=== PATIENT | female | born 1990 | race Caucasian/White ===

== ENCOUNTER 2016-11-18 20:20 | Emergency (ER) | payer OTHER ==
[~2016-11-18] VITALS: Ht 182.9 cm; Wt 104.3 kg
== END 2016-11-18 23:24 | disposition home or self-care (01) ==
LOC: ED 20:20
DX: J20.9 Acute bronchitis, unspecified (principal); F17.200 Nicotine dependence, unspecified, uncomplicated
CPT/HCPCS: 71020; 94640; 99283

== ENCOUNTER 2017-01-03 06:04 | Emergency (ER) | payer OTHER ==
[~2017-01-03] VITALS: Ht 182.9 cm; Wt 104.3 kg
[2017-01-03] MEDS ORDERED: ZOFRAN ODT4 MG PO (07:15)
== END 2017-01-03 07:38 | disposition home or self-care (01) ==
LOC: ED 06:04
DX: R11.2 Nausea with vomiting, unspecified (principal); F17.200 Nicotine dependence, unspecified, uncomplicated
CPT/HCPCS: 80053; 81001; 84703; 85025; 96361; 96374; 99283; J2405; J7030

== ENCOUNTER 2018-06-06 18:46 | Inpatient (IN) | payer OTHER ==
[~2018-06-06 18:46] MED LIST: ZOFRAN ODT4 MG PO
[2018-06-07] MEDS ORDERED: PRENATAL VITAM1 EACH PO (02:35)
--- NOTE | 2018-06-07 13:06 | PR ---
[facility] [address] [place] [address] Signed PP Progress Notes Datetime Report Generated by CPN: 06/07/2018 13:06 SUBJECTIVE: [id number] Pain: Within normal limits Nausea/Vomiting: Denies Vital Signs: [id number] Vital Signs: Reviewed; Within Normal Limits Notable Details: PP Hgb/Hct = 10.2/30.3 EXAM: [id number] Abdomen/Uterus: Normal Lochia: Normal Extremities: Normal IMPRESSION/PLAN/PROCEDURES: [id number] Impression: Normal progression Plan: Continue present management Procedures: None Progress Notes: Doing well, without complaint. Signing Physician: Kristel Alexis MD Copies: ~ *Electronically Signed* 06/07/18 1306 KRISTEL ALEXIS MD PATIENT NAME: RUTHIE DARDEN PROGRESS NOTE DATE OF : 89 PHYSICIAN: KRISTEL ALEXIS MD RPT #: [id number] REPORT IS CONFIDENTIAL AND NOT TO BE RELEASED WITHOUT AUTHORIZATION
--- NOTE | 2018-06-08 08:26 | PR ---
[facility] [address] [facility] [place] [address] Signed PP Progress Notes Datetime Report Generated by CPN: 06/08/2018 08:25 SUBJECTIVE: [id number] Pain: Within normal limits Nausea/Vomiting: Denies Vital Signs: [id number] Vital Signs: Reviewed; Within Normal Limits Notable Details: PP Hgb/Hct = 10.2/30.3 EXAM: [id number] Abdomen/Uterus: Normal Lochia: Normal Extremities: Normal IMPRESSION/PLAN/PROCEDURES: [id number] Impression: Normal progression Plan: Discharge Procedures: None Progress Notes: Doing well, without complaint. Ready to go home. Signing Physician: Kristel Alexis MD Copies: ~ *Electronically Signed* 06/08/18 0825 KRISTEL ALEXIS MD PATIENT NAME: RUTHIE DARDEN PROGRESS NOTE DATE OF : 89 PHYSICIAN: KRISTEL ALEXIS MD RPT #: [id number] REPORT IS CONFIDENTIAL AND NOT TO BE RELEASED WITHOUT AUTHORIZATION
== END 2018-06-08 12:35 | disposition home or self-care (01) | DRG 807 ==
LOC: FBCO 18:46 → FBC 20:00
PROVIDERS: ADMIT General Practice
PROC: 10E0XZZ Delivery of Products of Conception, External Approach (ICD-10-PCS; principal; 2018-06-06)
PROC: 0KQM0ZZ Repair Perineum Muscle, Open Approach (ICD-10-PCS; 2018-06-06)
DX: O69.81X0 Labor and delivery complicated by cord around neck, without compression, not applicable or unspecified (principal); Z37.0 Single live birth; O70.1 Second degree perineal laceration during delivery; Z3A.38 38 weeks gestation of pregnancy; O99.334 Smoking (tobacco) complicating childbirth; F17.210 Nicotine dependence, cigarettes, uncomplicated; O28.2 Abnormal cytological finding on antenatal screening of mother
CPT/HCPCS: 36415; 84112; 85027; J2590; J7120

== ENCOUNTER 2021-06-14 11:57 | Emergency (ER) | payer OTHER ==
[~2021-06-14] VITALS: Ht 182.9 cm; Wt 108.9 kg
[~2021-06-14 11:57] MED LIST changes: +PRENATAL VITAM1 EACH PO
[2021-06-14] MEDS ORDERED: ZITHROMAX250 MG PO (15:04)
[2021-06-14] MEDS ORDERED: VENTOLIN HFA18 GM INH (15:04)
== END 2021-06-14 16:00 | disposition home or self-care (01) ==
LOC: ED 11:57
DX: J12.9 Viral pneumonia, unspecified (principal); Z20.822 Contact with and (suspected) exposure to COVID-19; F17.200 Nicotine dependence, unspecified, uncomplicated
CPT/HCPCS: 36415; 71045; 80053; 84702; 85025; 85379; 96374; 99283-25; C9803; J2405; U0003

== ENCOUNTER 2021-10-03 14:27 | Emergency (ER) | payer OTHER ==
[~2021-10-03] VITALS: Ht 182.9 cm; Wt 113.8 kg
[~2021-10-03 14:27] MED LIST changes: +VENTOLIN HFA18 GM INH; +ZITHROMAX250 MG PO
[2021-10-03] MEDS ORDERED: HYDROCODON-ACE1 EA10 PO ×2 (16:15→16:17)
[2021-10-03] MEDS ORDERED: PENICILLIN V P500 MG PO ×2 (16:15→16:17)
== END 2021-10-03 16:31 | disposition home or self-care (01) ==
LOC: ED 14:27
DX: K02.9 Dental caries, unspecified (principal); K04.7 Periapical abscess without sinus; F17.200 Nicotine dependence, unspecified, uncomplicated
CPT/HCPCS: 99282

== ENCOUNTER 2023-09-12 21:53 | Emergency (ER) | payer SELFPAY ==
[~2023-09-12] VITALS: Ht 182.9 cm; Wt 108.4 kg
[~2023-09-12 21:53] MED LIST changes: +AMOX TR-K CLV1 EAC1 PO; +HYDROCODON-ACE1 EA10 PO; +PENICILLIN V P500 MG PO
[2023-09-12] MEDS ORDERED: diazePAM 10 MG/2 ML SYR IM ONE (22:30)
[2023-09-12] MEDS ORDERED: KETOROLAC TROMETHAMINE 60 MG/2 ML VIAL IM ONE (22:30)
[2023-09-12 22:55] LABS: BILIRUBIN, URINE NEGATIVE (negative); BLOOD/HGB, URINE NEGATIVE (Negative); KETONE, URINE NEGATIVE (Negative); LEUK ESTERASE, URINE NEGATIVE (negative); NITRITE, URINE NEGATIVE (negative)
[2023-09-12] MEDS ORDERED: CYCLOBENZAPRINE10 MG PO (23:25)
[2023-09-12 23:42] VITALS: BP 123/84
[2023-09-12] MEDS ORDERED: methylPREDNISolone 4 MG HOME.PACK PO ONE (23:45)
[2023-09-12] MEDS ORDERED: CYCLOBENZAPRINE HCL 10 MG HOME.PACK PO ONE (23:45)
== END 2023-09-12 23:43 | disposition home or self-care (01) ==
LOC: ED 21:53
PROVIDERS: Family Medicine
DX: S39.012A Strain of muscle, fascia and tendon of lower back, initial encounter (principal); I10 Essential (primary) hypertension; F17.200 Nicotine dependence, unspecified, uncomplicated; X50.0XXA Overexertion from strenuous movement or load, initial encounter
CPT/HCPCS: 72100; 81003; 84703; J1885; J3360

== ENCOUNTER 2024-02-13 09:54 | Emergency (ER) | payer SELFPAY ==
[~2024-02-13] VITALS: Ht 182.9 cm; Wt 117.2 kg
[~2024-02-13 09:54] MED LIST changes: +CYCLOBENZAPRINE10 MG PO
[2024-02-13] MEDS ORDERED: OXYCODONE/APAP 5/325 TAB PO ONE (10:30)
[2024-02-13 12:04] VITALS: BP 145/89
== END 2024-02-13 12:05 | disposition home or self-care (01) ==
LOC: ED 09:54
DX: S93.401A Sprain of unspecified ligament of right ankle, initial encounter (principal); X50.1XXA Overexertion from prolonged static or awkward postures, initial encounter; F17.200 Nicotine dependence, unspecified, uncomplicated
CPT/HCPCS: 73610; 99283